=== PATIENT | female | born 1995 | race Caucasian/White ===

== ENCOUNTER 2023-01-22 03:20 | Emergency (ER) | payer OTHER ==
[~2023-01-22] VITALS: Ht 157.5 cm; Wt 67.1 kg
[2023-01-22 03:27] VITALS: BP 118/78; PULSE 89; RESP 16; TEMP 98; O2SAT 98
== END 2023-01-22 03:30 ==
LOC: MED 03:20
DX: Z02.89 Encounter for other administrative examinations (principal); E11.9 Type 2 diabetes mellitus without complications; V89.2XXA Person injured in unspecified motor-vehicle accident, traffic, initial encounter; Y93.89 Activity, other specified; Y92.410 Unspecified street and highway as the place of occurrence of the external cause; Y99.8 Other external cause status
CPT/HCPCS: 99283